=== PATIENT | male | born 1940 | race Caucasian/White ===

== ENCOUNTER → 2017-10-01 | Outpatient (CLI) | payer OTHER ==
[~2017-10-01] MED LIST: AMLO10TA2 PO; ASPI-555 PO; ATEN100T PO; CILO100T PO; CLOP75TA14 PO; FENO134C PO; GLIM1TAB2 PO; HYDR12.54 PO; LISI-613 PO; METF750T2 PO; PRAV40TA3 PO; VORA2.082 PO
== END | disposition home or self-care (01) ==
LOC: SHCH 09:47
PROVIDERS: ATTEND Internal Medicine Cardiovascular Disease
DX: I65.23 Occlusion and stenosis of bilateral carotid arteries (principal); I70.8 Atherosclerosis of other arteries
CPT/HCPCS: 93880